=== PATIENT | male | born 1935 | race Caucasian/White ===

== ENCOUNTER 2018-09-05 16:48 | Emergency (ER) | payer MEDICARE, OTHER, SELFPAY ==
[2018-09-05 17:02] VITALS: BP 159/64; PULSE 73; RESP 15; TEMP 36.7; O2SAT 100; BMI 19.1
--- NOTE | 2018-09-05 19:07 | ED_ITS ---
HPI - Male Genitourinary General Chief complaint: Urogenital-Male Stated complaint: PEEING BLOOD Time Seen by Provider: 09/05/18 19:07 Source: patient Mode of arrival: ambulatory Limitations: no limitations History of Present Illness HPI Narrative: 82-year-old male on Plavix with history of prostate cancer and colon cancer here for evaluation of 24 hr hematuria. States it is not painful. States he is able to urinate. No fevers. No blood in the stool. Related Data Allergies Allergy/AdvReac Type Severity Reaction Status Date / Time Penicillins Allergy Verified 09/05/18 17:02 Review of Systems Constitutional Denies fever(s) Cardiovascular Denies chest pain Gastrointestinal Gastrointestinal: Denies abdominal pain, Denies nausea and Denies vomiting Genitourinary Reports hematuria and Denies dysuria Musculoskeletal Denies myalgias and Denies arthralgias Integumentary/Breasts Denies rash Neurologic Denies behavioral changes Psychiatric Denies behavioral changes Hematologic/Lymphatic Comments: On Plavix [facility] Medical History Bladder cancer (Acute) Colon cancer (Acute) Social History Smoking Status: Smoker, status unknown Social History Smoking Status: Smoker, status unknown Exam Initial Vital Signs Initial Vital Signs: Vital Signs Temperature 98.0 F 09/05/18 17:02 Pulse Rate 73 09/05/18 17:02 Respiratory Rate 15 09/05/18 17:02 Blood Pressure 159/64 H 09/05/18 17:02 Pulse Oximetry 100 09/05/18 17:02 Const General: cooperative, healthy appearing, comfortable, well developed, well groomed and No acute distress Orientation: alert, awake and oriented x3 Resp Effort & Inspection: normal respiratory effort Cardio Rate: regular rate GI Inspection: non-distended Palpation: soft Other: Colostomy bag in place External: normal external exam Skin Lesions: no lesions Rashes: no rashes Neuro General: alert, awake and oriented x3 Cognition: normal cognition Speech: speech normal Extrem General: normal to inspection and capillary refill normal Psych Appearance: grossly normal and well kempt Course Orders Ordered: ED Orders 09/05/18 20:28 Basic Metabolic Panel Stat Vital Signs - 8 hr 03/27/19 21:42 09/05/18 21:58 Pulse Rate 72 Blood Pressure 180/79 H Pulse Oximetry 94 MDM - Male Genitourinary Lab Data Attestation: I reviewed the patient's lab results. Result diagrams: 09/05/18 20:28 Lab Results 09/05/18 Range/Units 20:28 Sodium 141 (137-145) mmol/L Potassium 4.9 (3.4-5.1) mmol/L Chloride 104 (98-107) mmol/L Carbon Dioxide 27 (22-32) mmol/L BUN 23 H (9-20) mg/dL Creatinine 1.50 H (0.66-1.25) mg/dL Estimated GFR 44.7 L (>60) mL/min BUN/Creatinine Ratio 15.3 (6-22) Glucose 115 H (80-110) mg/dL Calcium 9.3 (8.4-10.2) mg/dL MDM Narrative Medical decision making narrative: Patient did not provide us a urine sample because he urinated in the toilet without collecting it. A 3 way catheter was placed and 3 L of fluid was flushed. This did seem to clear the bleeding. It was light pink afterwards. Informed the patient that he could continue to have some bleeding. Informed him that he needed to increase his fluid intake to make sure that he is urinating often. There were no signs of urinary retention so the Quinones was removed. I informed him that he needed to follow up with a urologist for a scope given his history. Patient was concerned about bladder cancer. He was given both the [facility] and also the [facility]rology numbers. He was given return precautions. He expressed understanding and agreement with plan. Discharge Plan Departure Patient Disposition: Home Clinical Impression: Hematuria Qualifiers: Hematuria type: gross Qualified Code(s): R31.0 - Gross hematuria Discharge Date/Time: 09/05/18 21:59 Interventions: ED Discharge Assessment Last Done: 09/05/18 21:58 Instructions: Blood in Urine Activity Restrictions/Additional Instructions: I recommend that you increase your fluid intake. Return to the emergency department if you develop new symptoms or if you are unable to urinate or developed lower abdominal pain. You can contact the [facility] urology Clinic at [phone]. Or the [facility]rology at [phone] return to the emergency department for any new or worsening symptoms
[2018-09-05 20:46] LABS: BUN Creatinine Ratio 15.3 (6-22); Blood Urea Nitrogen 23 mg/dL (9-20); Calcium 9.3 mg/dL (8.4-10.2); Carbon Dioxide 27 mmol/L (22-32); Chloride 104 mmol/L (98-107); Estimated Glomerular Filt Rate 44.7 mL/min (>60); Glucose 115 mg/dL (80-110); HEMOLYSIS < 15 (0-50); Potassium 4.9 mmol/L (3.4-5.1); Sodium 141 mmol/L (137-145)
--- NOTE | 2018-09-05 21:23 | PC.NURSE ---
pt urine is bright red. pt able to urinate easily. at 2030, placed guy catheter 16fr per dr orozco VO. irrigation 3l bag hanging. started bright red to pink now. dr orozco in to see pt.
[2018-09-05 21:42] VITALS: O2SAT 94
[2018-09-05 21:58] VITALS: BP 180/79; PULSE 72
== END 2018-09-05 21:59 | disposition home or self-care (01) ==
PROVIDERS: Emergency Provider Emergency Medicine
DX: R31.0 Gross hematuria (principal)
CPT/HCPCS: 36415; 51701; 80048; 99283

== ENCOUNTER 2018-09-06 08:16 | Emergency (ER) | payer MEDICARE, OTHER, SELFPAY ==
[2018-09-06 08:31] VITALS: BP 158/64; PULSE 60; RESP 15; TEMP 36.3; O2SAT 100; BMI 19.0
--- NOTE | 2018-09-06 09:02 | PC.NURSE ---
seen yesterday, pt reports,with bloody urine, denies fever,vomiting, or injuries. takes plavix.
--- NOTE | 2018-09-06 09:04 | ED.MALEGU ---
HPI - Male Genitourinary General Chief complaint: Urogenital-Male Stated complaint: Blood in urine Time Seen by Provider: 09/06/18 08:48 Source: patient Mode of arrival: ambulatory Limitations: no limitations History of Present Illness HPI Narrative: Patient is an 82-year-old male who presents with hematuria. He was seen evaluated here last night for the same he has Quinones catheter irrigation Quinones catheter was removed and patient was discharged home. Started bleeding again today. He has no abdominal pain. He is on Plavix. History of prostate cancer and colorectal cancer. He is visiting here from [place] and does not plan on going back to [place] until October. Complaint: other (Hematuria) Onset (ago): day(s) Related Data Home Medications Medication Instructions Recorded Confirmed amlodipine 5 mg PO DAILY 09/06/18 09/06/18 atenolol 100 mg PO DAILY 09/06/18 09/06/18 atorvastatin 20 mg PO DAILY 09/06/18 09/06/18 clopidogrel 75 mg PO DAILY 09/06/18 09/06/18 lisinopril 20 mg PO DAILY 09/06/18 09/06/18 metformin 500 mg PO BID 09/06/18 09/06/18 Previous Rx's Medication Instructions Recorded nitrofurantoin monohyd/m-cryst 100 mg PO BID #14 cap 09/06/18 [Macrobid] Allergies Allergy/AdvReac Type Severity Reaction Status Date / Time Penicillins Allergy Verified 09/06/18 08:31 Review of Systems Review of Systems ROS Unobtainable: All systems reviewed & are unremarkable except as noted in HPI and below Constitutional Denies chills, Denies fever(s), Denies lethargy and Denies weakness Cardiovascular Denies chest pain, Denies irregular heart rhythm, Denies lightheadedness, Denies palpitations, Denies dyspnea, Denies dyspnea on exertion and Denies orthopnea Respiratory Denies cough, Denies dyspnea, Denies dyspnea on exertion and Denies wheezing Gastrointestinal Gastrointestinal: Denies abdominal pain, Denies change in bowel habits, Denies diarrhea, Denies nausea and Denies vomiting Genitourinary Reports hematuria, Denies flank pain, Denies urinary incontinence and Denies urinary urgency Integumentary/Breasts Denies pruritus, Denies erythema, Denies rash and Denies wounds Neurologic Denies weakness Endocrine Denies palpitations Allergic/Immunologic Denies wheezing [facility] Medical History (Updated 09/06/18 @ 10:27 by Patti Mccain DO) Bladder cancer (Acute) Colon cancer (Acute) Surgical History (Updated 09/06/18 @ 09:16 by Patti Mccain DO) Status post colostomy (Acute) Social History Smoking Status: Smoker, status unknown Social History Smoking Status: Smoker, status unknown Exam Initial Vital Signs Initial Vital Signs: Vital Signs Temperature 97.4 F L 09/06/18 08:31 Pulse Rate 60 09/06/18 08:31 Respiratory Rate 15 09/06/18 08:31 Blood Pressure 158/64 H 09/06/18 08:31 Pulse Oximetry 100 09/06/18 08:31 GENERAL: Well-appearing, well-nourished and in no acute distress. HEENT: Head atraumatic,EOMI, pupils reactive CARDIOVASCULAR: Regular rate and rhythm without murmurs, rubs or gallops. RESPIRATORY: Breath sounds equal bilaterally, no wheezes rales or rhonchi. ABDOMEN: Soft, nontender. Normoactive bowel sounds all 4 quadrants. No guarding or rebound. Colostomy present : Quinones catheter now place with gross blood EXTREMITIES: Normal range of motion, no clubbing or edema. Neurovascularly intact NEUROLOGICAL: Alert and oriented x4.Normal gait and speech. SKIN: Warm, dry, no laceration, no petechiae, no rashes or lesions. Course Orders Ordered: Discontinued Medications Sodium Chloride (Normal Saline Irrigation) 3,000 ml IRR NOW ONE Stop: 09/06/18 09:22 Last Admin: 09/06/18 09:30 Dose: 3,000 ml Vital Signs - 8 hr 09/06/18 08:31 Temperature 97.4 F L Pulse Rate 60 Respiratory Rate 15 Blood Pressure 158/64 H Pulse Oximetry 100 MDM - Male Genitourinary Lab Data Lab Results 09/06/18 Range/Units 09:00 Urine Color Red Urine Appearance Cloudy Urine pH 7.0 (4.5-8.0) Ur Specific [place] 1.010 (1.000-1.035) Urine Protein 3+ H (Negative) Urine Glucose (UA) Trace H (Negative) g/dL Urine Ketones 1+ H (NEGATIVE) Urine Occult Blood 3+ H (Negative) Urine Nitrate Positive (Negative) Urine Bilirubin Negative (NEGATIVE) Urine Urobilinogen 2.0 H (0.2) E.U./dL Ur Leukocyte Esterase 2+ H (NEGATIVE) Urine RBC >100/hpf (0-5/HPF) Urine WBC 30-100/hpf H (0-5/HPF) Amorphous Sediment 3+ Urine Bacteria Many (>30) H (None) Ur Culture Indicated? Specimen cultured MDM Narrative Medical decision making narrative: The patient had 3 way Quinones catheter placed irrigated. Urine is still pink but clear through the tube. UTI present. Will leave Quinones catheter in place start on antibiotics. Patient actually has been seen by [place] urologist in [place] fill a few years ago. I recommend he follow up with her however I did give him a backup urologist. He is supposed to go back home in October. Discussed warning signs with both patient and son and when to return to the ED. Discharge Plan Departure Patient Disposition: Home Clinical Impression: Hematuria Qualifiers: Hematuria type: gross Qualified Code(s): R31.0 - Gross hematuria Urinary tract infection Qualifiers: Urinary tract infection type: acute cystitis Hematuria presence: with hematuria Qualified Code(s): N30.01 - Acute cystitis with hematuria Discharge Date/Time: 09/06/18 11:09 Interventions: ED Discharge Assessment Last Done: 09/06/18 11:08 Instructions: How to Care for Your Quinones Catheter -- Male, DI for Urinary Tract Infection (UTI) Activity Restrictions/Additional Instructions: *You have been diagnosed with UTI, hematuria *What to do: Keep Quinones catheter in place until seen evaluated by Urology in maybe 1-2 week. Increase fluid intake *Continue to take medications as directed Macrobid 100 mg twice a day for 7 days *Follow up with your primary care provider in 2-3 days, call [place] urology income feel for follow-up appointment call today to schedule appointment for next week *Return to ER if you should have Quinones catheter not draining, gross blood not able to see through the tube, and increased confusion, abdominal pain or any new, worsening or concerning symptoms Prescriptions: New nitrofurantoin monohyd/m-cryst [Macrobid] 100 mg capsule 100 mg PO BID Qty: 14 RF: 0 No Action metformin 500 mg tablet 500 mg PO BID RF: 0 atorvastatin 20 mg tablet 20 mg PO DAILY RF: 0 lisinopril 20 mg tablet 20 mg PO DAILY RF: 0 clopidogrel 75 mg tablet 75 mg PO DAILY RF: 0 amlodipine 5 mg tablet 5 mg PO DAILY RF: 0 atenolol 50 mg tablet 100 mg PO DAILY RF: 0 Referrals: Argentina Terrell MD [Non-Staff] -
--- NOTE | 2018-09-06 09:17 | ED_ITS ---
HPI - Male Genitourinary General Chief complaint: Urogenital-Male Stated complaint: Blood in urine Time Seen by Provider: 09/06/18 08:48 Source: patient Mode of arrival: ambulatory Limitations: no limitations History of Present Illness HPI Narrative: Patient is an 82-year-old male who presents with hematuria. He was seen evaluated here last night for the same he has Quinones catheter irrigation Quinones catheter was removed and patient was discharged home. Started bleeding again today. He has no abdominal pain. He is on Plavix. History of prostate cancer and colorectal cancer. He is visiting here from [place] and does not plan on going back to [place] until October. Complaint: other (Hematuria) Onset (ago): day(s) Related Data Home Medications Medication Instructions Recorded Confirmed amlodipine 5 mg PO DAILY 09/06/18 09/06/18 atenolol 100 mg PO DAILY 09/06/18 09/06/18 atorvastatin 20 mg PO DAILY 09/06/18 09/06/18 clopidogrel 75 mg PO DAILY 09/06/18 09/06/18 lisinopril 20 mg PO DAILY 09/06/18 09/06/18 metformin 500 mg PO BID 09/06/18 09/06/18 Previous Rx's Medication Instructions Recorded nitrofurantoin monohyd/m-cryst 100 mg PO BID #14 cap 09/06/18 [Macrobid] Allergies Allergy/AdvReac Type Severity Reaction Status Date / Time Penicillins Allergy Verified 09/06/18 08:31 Review of Systems Review of Systems ROS Unobtainable: All systems reviewed & are unremarkable except as noted in HPI and below Constitutional Denies chills, Denies fever(s), Denies lethargy and Denies weakness Cardiovascular Denies chest pain, Denies irregular heart rhythm, Denies lightheadedness, Denies palpitations, Denies dyspnea, Denies dyspnea on exertion and Denies orthopnea Respiratory Denies cough, Denies dyspnea, Denies dyspnea on exertion and Denies wheezing Gastrointestinal Gastrointestinal: Denies abdominal pain, Denies change in bowel habits, Denies diarrhea, Denies nausea and Denies vomiting Genitourinary Reports hematuria, Denies flank pain, Denies urinary incontinence and Denies urinary urgency Integumentary/Breasts Denies pruritus, Denies erythema, Denies rash and Denies wounds Neurologic Denies weakness Endocrine Denies palpitations Allergic/Immunologic Denies wheezing [facility] Medical History (Updated 09/06/18 @ 10:27 by Patti Mccain DO) Bladder cancer (Acute) Colon cancer (Acute) Surgical History (Updated 09/06/18 @ 09:16 by Patti Mccain DO) Status post colostomy (Acute) Social History Smoking Status: Smoker, status unknown Social History Smoking Status: Smoker, status unknown Exam Initial Vital Signs Initial Vital Signs: Vital Signs Temperature 97.4 F L 09/06/18 08:31 Pulse Rate 60 09/06/18 08:31 Respiratory Rate 15 09/06/18 08:31 Blood Pressure 158/64 H 09/06/18 08:31 Pulse Oximetry 100 09/06/18 08:31 GENERAL: Well-appearing, well-nourished and in no acute distress. HEENT: Head atraumatic,EOMI, pupils reactive CARDIOVASCULAR: Regular rate and rhythm without murmurs, rubs or gallops. RESPIRATORY: Breath sounds equal bilaterally, no wheezes rales or rhonchi. ABDOMEN: Soft, nontender. Normoactive bowel sounds all 4 quadrants. No guarding or rebound. Colostomy present : Quinones catheter now place with gross blood EXTREMITIES: Normal range of motion, no clubbing or edema. Neurovascularly intact NEUROLOGICAL: Alert and oriented x4.Normal gait and speech. SKIN: Warm, dry, no laceration, no petechiae, no rashes or lesions. Course Orders Ordered: Discontinued Medications Sodium Chloride (Normal Saline Irrigation) 3,000 ml IRR NOW ONE Stop: 09/06/18 09:22 Last Admin: 09/06/18 09:30 Dose: 3,000 ml Vital Signs - 8 hr 09/06/18 08:31 Temperature 97.4 F L Pulse Rate 60 Respiratory Rate 15 Blood Pressure 158/64 H Pulse Oximetry 100 MDM - Male Genitourinary Lab Data Lab Results 09/06/18 Range/Units 09:00 Urine Color Red Urine Appearance Cloudy Urine pH 7.0 (4.5-8.0) Ur Specific [place] 1.010 (1.000-1.035) Urine Protein 3+ H (Negative) Urine Glucose (UA) Trace H (Negative) g/dL Urine Ketones 1+ H (NEGATIVE) Urine Occult Blood 3+ H (Negative) Urine Nitrate Positive (Negative) Urine Bilirubin Negative (NEGATIVE) Urine Urobilinogen 2.0 H (0.2) E.U./dL Ur Leukocyte Esterase 2+ H (NEGATIVE) Urine RBC >100/hpf (0-5/HPF) Urine WBC 30-100/hpf H (0-5/HPF) Amorphous Sediment 3+ Urine Bacteria Many (>30) H (None) Ur Culture Indicated? Specimen cultured MDM Narrative Medical decision making narrative: The patient had 3 way Quinones catheter placed irrigated. Urine is still pink but clear through the tube. UTI present. Will leave Quinones catheter in place start on antibiotics. Patient actually has been seen by [place] urologist in [place] fill a few years ago. I recommend he follow up with her however I did give him a backup urologist. He is supposed to go back home in October. Discussed warning signs with both patient and son and when to return to the ED. Discharge Plan Departure Patient Disposition: Home Clinical Impression: Hematuria Qualifiers: Hematuria type: gross Qualified Code(s): R31.0 - Gross hematuria Urinary tract infection Qualifiers: Urinary tract infection type: acute cystitis Hematuria presence: with hematuria Qualified Code(s): N30.01 - Acute cystitis with hematuria Discharge Date/Time: 09/06/18 11:09 Interventions: ED Discharge Assessment Last Done: 09/06/18 11:08 Instructions: How to Care for Your Quinones Catheter -- Male, DI for Urinary Tract Infection (UTI) Activity Restrictions/Additional Instructions: *You have been diagnosed with UTI, hematuria *What to do: Keep Quinones catheter in place until seen evaluated by Urology in maybe 1-2 week. Increase fluid intake *Continue to take medications as directed Macrobid 100 mg twice a day for 7 days *Follow up with your primary care provider in 2-3 days, call [place] urology income feel for follow-up appointment call today to schedule appointment for next week *Return to ER if you should have Quinones catheter not draining, gross blood not able to see through the tube, and increased confusion, abdominal pain or any new, worsening or concerning symptoms Prescriptions: New nitrofurantoin monohyd/m-cryst [Macrobid] 100 mg capsule 100 mg PO BID Qty: 14 RF: 0 No Action metformin 500 mg tablet 500 mg PO BID RF: 0 atorvastatin 20 mg tablet 20 mg PO DAILY RF: 0 lisinopril 20 mg tablet 20 mg PO DAILY RF: 0 clopidogrel 75 mg tablet 75 mg PO DAILY RF: 0 amlodipine 5 mg tablet 5 mg PO DAILY RF: 0 atenolol 50 mg tablet 100 mg PO DAILY RF: 0 Referrals: Argentina Terrell MD [Non-Staff] -
[2018-09-06 09:19] VITALS: BP 146/55; PULSE 66; RESP 18; O2SAT 100
[2018-09-06 09:25] LABS: Appearance Urine UA CLOUDY; Bilirubin Urine UA NEGATIVE (NEGATIVE); Color Urine UA RED; Glucose Urine UA TRACE g/dL (Negative); Ketones Urine UA 1+ (NEGATIVE); Leukocyte Esterase Urine UA 2+ (NEGATIVE); Nitrite Urine UA POSITIVE (Negative); Occult Blood Urine UA 3+ (Negative); Protein Urine UA 3+ (Negative)
[2018-09-06] MEDS: SODIUM CHLORIDE IRRIG SOLUTION 3,000 ML 3000 ML IRR (09:30)
[2018-09-06 10:14] LABS: RBC Urine >100/HPF (0-5/HPF)
[2018-09-06 10:15] LABS: Amorphous Sediment Urine 3+; Bacteria Urine Many (>30); Culture Indicated Urine Specimen Cultured; WBC Urine 30-100/HPF (0-5/HPF)
[2018-09-06 10:16] VITALS: BP 127/57; PULSE 60; RESP 16; O2SAT 100
== END 2018-09-06 11:09 | disposition home or self-care (01) ==
PROVIDERS: Emergency Provider Emergency Medicine
DX: N30.01 Acute cystitis with hematuria (principal)
CPT/HCPCS: 51701; 81001; 87086; 99283; 99284

== ENCOUNTER 2018-09-17 18:39 | Emergency (ER) | payer MEDICARE, OTHER, SELFPAY ==
[2018-09-17 18:53] VITALS: BP 175/85; PULSE 79; RESP 18; TEMP 37.5; O2SAT 100
--- NOTE | 2018-09-17 19:52 | ED.MALEGU ---
HPI - Male Genitourinary <Laurie Alfred PA-C - Last Filed: 09/17/18 22:15> General Chief complaint: Urogenital-Male Stated complaint: UNABLE TO PEE Time Seen by Provider: 09/17/18 19:10 Source: patient Mode of arrival: ambulatory Limitations: no limitations History of Present Illness HPI Narrative: This 82-year-old gentleman returns to ED due to urinary retention. He states that he was treated here recently for hematuria and infection and had catheter placed. He did follow up with Urology and states that he had a cystoscopy, no malignancy was found. He states that 4-5 days ago, he decided to have the catheter removed after discussing with Urology. He states that since then he has been able to urinate but has had a weak stream that tends to go to the right side. He states that a couple of hours ago when he went to urinate he could not wait at all despite straining and started to feel uncomfortable so came here. After he came here, he was able to void ?a dribble?. Tried again a few minutes ago and unable, but he does not feel uncomfortable now. He states he does not feel like he has infection again, no blood or mucus in his urine like before. He is not having urinary pain. He denies any nausea, vomiting, fever or other new complaints. Related Data Home Medications Medication Instructions Recorded Confirmed amlodipine 5 mg PO DAILY 09/06/18 09/06/18 atenolol 100 mg PO DAILY 09/06/18 09/06/18 atorvastatin 20 mg PO DAILY 09/06/18 09/06/18 clopidogrel 75 mg PO DAILY 09/06/18 09/06/18 lisinopril 20 mg PO DAILY 09/06/18 09/06/18 metformin 500 mg PO BID 09/06/18 09/06/18 Previous Rx's Medication Instructions Recorded nitrofurantoin monohyd/m-cryst 100 mg PO BID #14 cap 09/06/18 [Macrobid] nitrofurantoin monohyd/m-cryst 100 mg PO Q12H 4 Days #8 cap 09/17/18 [Macrobid] Allergies Allergy/AdvReac Type Severity Reaction Status Date / Time Penicillins Allergy Verified 09/06/18 08:31 Review of Systems <Laurie Alfred PA-C - Last Filed: 09/17/18 22:15> Review of Systems ROS Unobtainable: All systems reviewed & are unremarkable except as noted in HPI and below PFSH <Laurie Alfred PA-C - Last Filed: 09/17/18 22:15> Medical History (Updated 09/17/18 @ 20:30 by Laurie Alfred PA-C) History of TB (tuberculosis) (Resolved) Prostate cancer (Resolved) Colon cancer (Resolved) Bladder cancer (Resolved) History of prostate cancer (Resolved) Surgical History (Updated 09/17/18 @ 20:17 by Laurie Alfred PA-C) 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 LUNGS: Clear to auscultation bilaterally. HEART: Rate and rhythm regular without murmur, normal S1 and S2, no S3 or S4. ABDOMEN: Soft, nondistended, +bowel sounds x4 quad, brown stool in colostomy bag. Minimal suprapubic tenderness. EXTREMITIES: No edema NEURO: Alert, oriented, normal speech, gait and coordination Initial Vital Signs Initial Vital Signs: Vital Signs Temperature 99.5 F 09/17/18 18:53 Pulse Rate 79 09/17/18 18:53 Respiratory Rate 18 09/17/18 18:53 Blood Pressure 175/85 H 09/17/18 18:53 Pulse Oximetry 100 09/17/18 18:53 <Brady Chavarria DO - Last Filed: 09/18/18 06:37> Initial Vital Signs Initial Vital Signs: Vital Signs Temperature 99.5 F 09/17/18 18:53 Pulse Rate 79 09/17/18 18:53 Respiratory Rate 18 09/17/18 18:53 Blood Pressure 175/85 H 09/17/18 18:53 Pulse Oximetry 100 09/17/18 18:53 Course <Laurie Alfred PA-C - Last Filed: 09/17/18 22:15> Orders Ordered: Discontinued Medications Nitrofurantoin Macrocrystals (Macrobid 100mg Prepack) 1 bottle MISC SEEINSTR ONE Stop: 09/17/18 20:26 Last Admin: 09/17/18 21:00 Dose: 1 bottle Vital Signs - 8 hr 09/17/18 18:53 09/17/18 21:12 Temperature 99.5 F Pulse Rate 79 67 Respiratory Rate 18 18 Blood Pressure 175/85 H 166/69 H Pulse Oximetry 100 96 <DO Terri Clark Last Filed: 09/18/18 06:37> Orders Ordered: Discontinued Medications Nitrofurantoin Macrocrystals (Macrobid 100mg Prepack) 1 bottle MISC SEEINSTR ONE Stop: 09/17/18 20:26 Last Admin: 09/17/18 21:00 Dose: 1 bottle Vital Signs - 8 hr 09/17/18 18:53 09/17/18 21:12 Temperature 99.5 F Pulse Rate 79 67 Respiratory Rate 18 18 Blood Pressure 175/85 H 166/69 H Pulse Oximetry 100 96 MDM - Male Genitourinary <Laurie Alfred PA-C - Last Filed: 09/17/18 22:15> Lab Data Urine Dip Bedside Urine Glucose Negative Bedside Urine Bilirubin - Negative Bedside Urine Ketone - Negative Urine Specific [place] 1.025 Bedside Urine Occult Blood +/- Bedside Urine pH 6.0 Bedside Urine Protein + 30 Bedside Urine Urobilinogen - Negative Bedside Urine Nitrite - Negative Bedside Urine Leukocytes +++ 500 Esterase <DO Terri Clark Last Filed: 09/18/18 06:37> Lab Data Urine Dip Bedside Urine Glucose Negative Bedside Urine Bilirubin - Negative Bedside Urine Ketone - Negative Urine Specific [place] 1.025 Bedside Urine Occult Blood +/- Bedside Urine pH 6.0 Bedside Urine Protein + 30 Bedside Urine Urobilinogen - Negative Bedside Urine Nitrite - Negative Bedside Urine Leukocytes +++ 500 Esterase Discharge Plan Departure Patient Disposition: Home Clinical Impression: Acute retention of urine Discharge Date/Time: 09/17/18 21:12 Interventions: ED Discharge Assessment Last Done: 09/17/18 21:12 Instructions: DI for Urinary Retention in Men Activity Restrictions/Additional Instructions: Please keep the catheter in place, and call Dr. Arisco's office 1st thing in the morning. Let them know that you were seen in the emergency room with urinary retention again and that we replace the catheter. Please make an appointment to follow up there this week. 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 We will send your urine off for a repeat culture again Prescriptions: New nitrofurantoin monohyd/m-cryst [Macrobid] 100 mg capsule 100 mg PO Q12H 4 Days Qty: 8 RF: 0 No Action metformin 500 mg tablet 500 mg PO BID RF: 0 atorvastatin 20 mg tablet 20 mg PO DAILY RF: 0 lisinopril 20 mg tablet 20 mg PO DAILY RF: 0 clopidogrel 75 mg tablet 75 mg PO DAILY RF: 0 amlodipine 5 mg tablet 5 mg PO DAILY RF: 0 atenolol 50 mg tablet 100 mg PO DAILY RF: 0 nitrofurantoin monohyd/m-cryst [Macrobid] 100 mg capsule 100 mg PO BID Qty: 14 RF: 0 Referrals: Argentina Terrell MD [Non-Staff] - <Brady Chavarria DO - Last Filed: 09/18/18 06:37> Cosign ED Attending Cospaulature Attestation: I was immediately available in the department for consultation. Documentation has been reviewed. I agree with assessment and plan.
[2018-09-17] MEDS: NITROFURANTOIN 100MG PREPACK 1 BOTTLE MISC (21:00)
[2018-09-17 21:12] VITALS: BP 166/69; PULSE 67; RESP 18; O2SAT 96
== END 2018-09-17 21:12 | disposition home or self-care (01) ==
PROVIDERS: Emergency Provider Internal Medicine
DX: R33.8 Other retention of urine (principal)
CPT/HCPCS: 51701; 51798; 81003; 99283